=== PATIENT | female | born 1930 | race Caucasian/White ===

== ENCOUNTER 2019-06-06 11:34 | Inpatient (IN) | payer MEDICARE, OTHER ==
[~2019-06-06] VITALS: Ht 165.1 cm; Wt 54.1 kg
[~2019-06-06 11:34] MED LIST: AMLO-150 PO; ASPI-515 PO; CHOL10002 PO; DOCU-131 PO; LEVO112T2 PO; LISI-170 PO; OMEP-110 PO; OXYC-302 PO; VITA100C8 PO
[2019-06-06] MEDS ORDERED: SODIUM CHLORIDE 0.9% 1,000ML IVBOLUS ONE (12:30)
[2019-06-06] MEDS ORDERED: SODIUM CHLORIDE FLUSH 10ML SYR IVF ONE (12:30)
[2019-06-06 12:52] LABS: BASOPHILS # (AUTO) 0.04 x10^3/uL (0-0.1); BASOPHILS % (AUTO) 0 % (0-1); EOSINOPHILS # (AUTO) 0.03 x10^3/uL (0-0.4); EOSINOPHILS % (AUTO) 0 % (1-7); LYMPHOCYTES # (AUTO) 1.01 x10^3/uL (1-3.4); LYMPHOCYTES % (AUTO) 6 % (22-44); MD NO; MEAN CORPUSCULAR HEMOGLOBIN 33.8 pg (27.0-34.8); MEAN CORPUSCULAR HGB CONC 33.7 g/dL (32.4-35.8); MEAN CORPUSCULAR VOLUME 100.3 fL (80-100); MEAN PLATELET VOLUME 7.9 fL (7.4-10.4); MONOCYTES # (AUTO) 0.83 x10^3/uL (0.2-0.8); MONOCYTES % (AUTO) 5 % (2-9); NEUTROPHILS # (AUTO) 13.83 x10^3/uL (1.8-6.8); NEUTROPHILS % (AUTO) 88 % (42-75); PLATELET COUNT 323 x10^3/uL (130-400); RED BLOOD COUNT 4.12 x10^6/uL (3.82-5.3); RED CELL DISTRIBUTION WIDTH 13.5 % (9.6-15.2)
--- NOTE | 2019-06-06 13:01 | NUR ---
daughter and son in law cl and andrew in case of discharge [phone]
[2019-06-06 13:06] LABS: ALBUMIN 3.2 g/dL (3.4-5.0); ANION GAP 7 mmol/L (5-15); CALCIUM 8.1 mg/dL (8.5-10.1); CHLORIDE 107 mmol/L (98-107); CREATININE 1.11 mg/dL (0.55-1.02)
[2019-06-06 13:10] LABS: TROPONIN I < 0.015 ng/mL (0.000-0.045)
--- NOTE | 2019-06-06 13:47 | NUR ---
ASSIST PRIMARY FOR [facility] FOR SPECIMEN, UA WALKED TO LAB.
[2019-06-06 13:55] LABS: MICROSCOPIC AUTO
[2019-06-06 13:57] LABS: CULTURE INDICATED? NO
--- NOTE | 2019-06-06 15:05 | NUR ---
TASK RN: PT RESTING IN [facility] ON MONITOR, VS UPDATED. NO NEEDS AT THIS TIME. AWAITING BED ASSIGNMENT
[2019-06-06 16:04] LABS: CLOSTRIDIUM DIFFICILE ANTIGEN NEGATIVE; CLOSTRIDIUM DIFFICILE TOXIN NEGATIVE (Negative)
[2019-06-06] MEDS: SODIUM CHLORIDE 0.9% 1,000 ML IV SCH (16:16)
[2019-06-06] MEDS ORDERED: ONDANSETRON 2MG/ML, 2ML IVPush PRN (16:30)
[2019-06-06] MEDS ORDERED: ONDANSETRON ODT 4 MG PO PRN (16:30)
[2019-06-06] MEDS ORDERED: ACETAMINOPHEN 325 MG TABLET PO PRN (16:30)
[2019-06-06] MEDS ORDERED: morphine SULFATE 10 MG/ML, 1ML IVPush PRN (16:30)
[2019-06-06] MEDS ORDERED: DOCUSATE 100 MG CAPSULE PO PRN (16:30)
[2019-06-06] MEDS: HEPARIN 5,000 UNITS/ML, 1ML SQ SCH (17:39)
[2019-06-06] MEDS: OXYcodone/APAP 5/325MG TABLET PO SCH (17:40)
[2019-06-06 18:38] VITALS: BP 108/62
[2019-06-06 19:22] VITALS: BP 140/66
[2019-06-06 20:37] VITALS: BP 147/79
[2019-06-06] MEDS: AMLODIPINE 5 MG TABLET PO SCH (20:38)
[2019-06-07 01:01] VITALS: BP 135/71
[2019-06-07] MEDS: HEPARIN 5,000 UNITS/ML, 1ML SQ SCH ×3 (01:46→17:09)
[2019-06-07] MEDS: SODIUM CHLORIDE 0.9% 1,000 ML IV SCH ×3 (01:48→17:00)
[2019-06-07] MEDS ORDERED: LEVOTHYROXINE 112 MCG TABLET PO SCH (06:00)
[2019-06-07 06:06] LABS: BASOPHILS # (AUTO) 0.03 x10^3/uL (0-0.1); BASOPHILS % (AUTO) 0 % (0-1); EOSINOPHILS # (AUTO) 0.08 x10^3/uL (0-0.4); EOSINOPHILS % (AUTO) 1 % (1-7); LYMPHOCYTES # (AUTO) 1.52 x10^3/uL (1-3.4); LYMPHOCYTES % (AUTO) 21 % (22-44); MD NO; MEAN CORPUSCULAR HEMOGLOBIN 33.7 pg (27.0-34.8); MEAN CORPUSCULAR HGB CONC 33.6 g/dL (32.4-35.8); MEAN CORPUSCULAR VOLUME 100.2 fL (80-100); MONOCYTES # (AUTO) 0.84 x10^3/uL (0.2-0.8); MONOCYTES % (AUTO) 12 % (2-9); NEUTROPHILS # (AUTO) 4.84 x10^3/uL (1.8-6.8); NEUTROPHILS % (AUTO) 66 % (42-75); PLATELET COUNT 241 x10^3/uL (130-400); RED BLOOD COUNT 3.44 x10^6/uL (3.82-5.3); RED CELL DISTRIBUTION WIDTH 13.2 % (9.6-15.2)
[2019-06-07 06:12] LABS: CALCIUM 7.6 mg/dL (8.5-10.1); CHLORIDE 113 mmol/L (98-107)
[2019-06-07 06:26] LABS: ALANINE AMINOTRANSFERASE 18 U/L (12-78); ALBUMIN 2.7 g/dL (3.4-5.0); ALKALINE PHOSPHATASE 79 U/L (45-117); ANION GAP 6 mmol/L (5-15); BILIRUBIN,TOTAL 0.6 mg/dL (0.2-1.0); CREATININE 0.85 mg/dL (0.55-1.02); TOTAL PROTEIN 5.4 g/dL (6.4-8.2)
[2019-06-07 08:15] VITALS: BP 163/78
[2019-06-07 09:32] VITALS: BP 148/83
[2019-06-07 09:37] VITALS: BP 162/80
[2019-06-07 09:40] VITALS: BP 162/77
[2019-06-07] MEDS: ASPIRIN 81 MG TABLET EC PO SCH (09:51)
[2019-06-07] MEDS: CYANOCOBALAMIN 1,000 MCG TABLET PO SCH (09:51)
[2019-06-07] MEDS: OMEPRAZOLE 20 MG CAPSULE.DR PO SCH (09:51)
[2019-06-07] MEDS: AMLODIPINE 5 MG TABLET PO SCH ×2 (09:51→20:13)
[2019-06-07] MEDS: CHOLECALCIFEROL 1,000 UNIT TABLET PO SCH (09:51)
[2019-06-07] MEDS ORDERED: OMNIPAQUE 350 MG/ML, 100ML BOTTLE ONE (14:10)
[2019-06-07] MEDS: OXYcodone/APAP 5/325MG TABLET PO SCH (16:49)
[2019-06-07 18:43] VITALS: BP 154/66
[2019-06-08] MEDS: HEPARIN 5,000 UNITS/ML, 1ML SQ SCH ×3 (01:13→17:36)
[2019-06-08] MEDS: SODIUM CHLORIDE 0.9% 1,000 ML IV SCH (01:13)
[2019-06-08 01:48] VITALS: BP 142/65
[2019-06-08 04:51] LABS: BASOPHILS # (AUTO) 0.02 x10^3/uL (0-0.1); BASOPHILS % (AUTO) 0 % (0-1); EOSINOPHILS # (AUTO) 0.13 x10^3/uL (0-0.4); EOSINOPHILS % (AUTO) 2 % (1-7); LYMPHOCYTES # (AUTO) 1.36 x10^3/uL (1-3.4); LYMPHOCYTES % (AUTO) 20 % (22-44); MD NO; MEAN CORPUSCULAR HEMOGLOBIN 33.8 pg (27.0-34.8); MEAN CORPUSCULAR HGB CONC 33.5 g/dL (32.4-35.8); MEAN CORPUSCULAR VOLUME 100.9 fL (80-100); MEAN PLATELET VOLUME 8.2 fL (7.4-10.4); MONOCYTES # (AUTO) 0.85 x10^3/uL (0.2-0.8); MONOCYTES % (AUTO) 12 % (2-9); NEUTROPHILS % (AUTO) 66 % (42-75); PLATELET COUNT 232 x10^3/uL (130-400); RED BLOOD COUNT 3.42 x10^6/uL (3.82-5.3); RED CELL DISTRIBUTION WIDTH 13.3 % (9.6-15.2)
[2019-06-08 05:00] LABS: CHLORIDE 110 mmol/L (98-107)
[2019-06-08 05:10] LABS: ALANINE AMINOTRANSFERASE 20 U/L (12-78); ALBUMIN 2.9 g/dL (3.4-5.0); ALKALINE PHOSPHATASE 71 U/L (45-117); ANION GAP 5 mmol/L (5-15); BILIRUBIN,TOTAL 0.5 mg/dL (0.2-1.0); CALCIUM 8.1 mg/dL (8.5-10.1); CREATININE 0.78 mg/dL (0.55-1.02); TOTAL PROTEIN 5.9 g/dL (6.4-8.2)
[2019-06-08] MEDS: LEVOTHYROXINE 100 MCG TABLET PO SCH (05:29)
[2019-06-08 07:05] VITALS: BP 125/68
[2019-06-08] MEDS: OMEPRAZOLE 20 MG CAPSULE.DR PO SCH (09:59)
[2019-06-08] MEDS: CHOLECALCIFEROL 1,000 UNIT TABLET PO SCH (09:59)
[2019-06-08] MEDS: AMLODIPINE 5 MG TABLET PO SCH ×2 (09:59→19:48)
[2019-06-08] MEDS: ASPIRIN 81 MG TABLET EC PO SCH (09:59)
[2019-06-08] MEDS: CYANOCOBALAMIN 1,000 MCG TABLET PO SCH (09:59)
[2019-06-08 13:41] VITALS: BP 161/72
[2019-06-08] MEDS: OXYcodone/APAP 5/325MG TABLET PO SCH (17:35)
[2019-06-08 19:47] VITALS: BP 145/60
[2019-06-09 00:58] VITALS: BP 156/69
[2019-06-09] MEDS: HEPARIN 5,000 UNITS/ML, 1ML SQ SCH ×2 (01:39→09:28)
[2019-06-09] MEDS: LEVOTHYROXINE 100 MCG TABLET PO SCH (05:21)
[2019-06-09 08:45] VITALS: BP 164/77
[2019-06-09] MEDS ORDERED: LISINOPRIL 10 MG TABLET PO SCH (09:00)
[2019-06-09] MEDS: AMLODIPINE 5 MG TABLET PO SCH (09:27)
[2019-06-09] MEDS: CHOLECALCIFEROL 1,000 UNIT TABLET PO SCH (09:27)
[2019-06-09] MEDS: OMEPRAZOLE 20 MG CAPSULE.DR PO SCH (09:27)
[2019-06-09] MEDS: ASPIRIN 81 MG TABLET EC PO SCH (09:27)
[2019-06-09] MEDS: CYANOCOBALAMIN 1,000 MCG TABLET PO SCH (09:28)
[2019-06-09 14:30] VITALS: BP_SYST 81
[2019-06-09] MEDS ORDERED: LEVO100T PO (14:55)
== END 2019-06-09 16:43 | disposition home health service (06) | DRG 640 ==
LOC: ED 14:43 → EDIP 14:44 → ED 14:53 → 4WST 16:16
PROVIDERS: ADMIT Internal Medicine; ATTEND Internal Medicine
PROC: 0T9B70Z Drainage of Bladder with Drainage Device, Via Natural or Artificial Opening (ICD-10-PCS; principal; 2019-06-06)
DX: E86.0 Dehydration (principal); J96.01 Acute respiratory failure with hypoxia; N17.0 Acute kidney failure with tubular necrosis; F11.20 Opioid dependence, uncomplicated; K21.9 Gastro-esophageal reflux disease without esophagitis; I10 Essential (primary) hypertension; G89.29 Other chronic pain; E03.9 Hypothyroidism, unspecified; M54.9 Dorsalgia, unspecified; K52.9 Noninfective gastroenteritis and colitis, unspecified; D72.829 Elevated white blood cell count, unspecified; E53.8 Deficiency of other specified B group vitamins; Z88.2 Allergy status to sulfonamides; Z88.8 Allergy status to other drugs, medicaments and biological substances; E88.09 Other disorders of plasma-protein metabolism, not elsewhere classified; K59.09 Other constipation; M41.9 Scoliosis, unspecified; Z66 Do not resuscitate; Z83.3 Family history of diabetes mellitus; Z87.81 Personal history of (healed) traumatic fracture
CPT/HCPCS: 36415; 71045; 71275; 74176; 80048; 80053; 81001; 82040; 83735; 84100; 84443; 84484; 85025; 85379; 87046; 87324; 87427; 89055; 93005; 93306; 96360; 96361; G0378; J1644; Q9967; J7030